=== PATIENT | female | born 1950 | race Two or more races ===

== ENCOUNTER → 2020-10-06 | Outpatient (CLI) | payer OTHER ==
[2020-10-06 10:45] LABS: Urine WBC None Seen /hpf (0 - 5)
[2020-10-06 10:49] LABS: Basophils # (auto) 0 10 ^3/uL (0-0.2); Basophils % (auto) 0.8 % (0.0-2.0); Eosinophils # (auto) 0 10 ^3/uL (0-0.8); Eosinophils % (auto) 0.6 % (0.0-7.0); Hematocrit 37.8 % (36.0-46.0); Hemoglobin 13.2 g/dL (12.2-16.2); Lymphocytes # (auto) 1.6 10 ^3/uL (0.4-5.4); Lymphocytes % (auto) 43.6 % (10.0-50.0); Mean Corpuscular Hemoglobin 32.6 pg (28.0-32.0); Mean Corpuscular Hgb Conc. 34.9 g/dL (32.0-36.0); Mean Corpuscular Volume 93.3 fL (80.0-100.0); Monocytes # (auto) 0.3 10 ^3/uL (0-1.3); Monocytes % (auto) 8.3 % (0.0-12.0); Neutrophils # (auto) 1.7 10 ^3/uL (1.6-8.6); Neutrophils % (auto) 46.7 % (37.0-80.0); Nucleated Red Blood Cells % 0.1 %; Platelet Count (auto) 206 10^3/uL (140-450); Red Blood Cells 4.05 10^6/uL (4.0-5.20); Red Cell Distribution Width 13.2 % (11.8-14.3); White Blood Cell 3.7 10^3/uL (4.4-10.8)
[2020-10-06 10:52] LABS: Urine Bacteria NONE SEEN /hpf (None Seen); Urine Blood Negative /uL (Negative); Urine Specific Gravity 1.008 (1.001-1.035)
[2020-10-06 11:12] LABS: Albumin 4.2 g/dL (3.4-5.0); Potassium 3.8 mmol/L (3.5-5.1)
[2020-10-06 11:18] LABS: Bilirubin, Total 0.6 mg/dL (0.2-1.0); Calcium 8.8 mg/dL (8.5-10.1); Total Protein 7.8 g/dL (6.4-8.2)
== END | disposition home or self-care (01) ==
LOC: LAB 10:27
PROVIDERS: ATTEND Internal Medicine
DX: E11.9 Type 2 diabetes mellitus without complications (principal); I10 Essential (primary) hypertension; E78.5 Hyperlipidemia, unspecified
CPT/HCPCS: 36415; 80053; 80061; 81001; 82043; 83036; 85025

== ENCOUNTER 2020-12-30 09:38 | Day surgery (SDC) | payer OTHER ==
[2020-12-27 10:58] LABS: Basophils # (auto) 0 10 ^3/uL (0-0.2); Basophils % (auto) 0.6 % (0.0-2.0); Eosinophils # (auto) 0 10 ^3/uL (0-0.8); Eosinophils % (auto) 0.5 % (0.0-7.0); Hematocrit 38.9 % (36.0-46.0); Hemoglobin 13.9 g/dL (12.2-16.2); Lymphocytes # (auto) 2.2 10 ^3/uL (0.4-5.4); Lymphocytes % (auto) 38.6 % (10.0-50.0); Mean Corpuscular Hemoglobin 32.9 pg (28.0-32.0); Mean Corpuscular Hgb Conc. 35.7 g/dL (32.0-36.0); Mean Corpuscular Volume 92.3 fL (80.0-100.0); Monocytes # (auto) 0.5 10 ^3/uL (0-1.3); Neutrophils % (auto) 52.3 % (37.0-80.0); Nucleated Red Blood Cells % 0.1 %; Red Blood Cells 4.21 10^6/uL (4.0-5.20); Red Cell Distribution Width 12.9 % (11.8-14.3); White Blood Cell 5.8 10^3/uL (4.4-10.8)
[2020-12-27 12:11] LABS: Potassium 3.8 mmol/L (3.5-5.1)
[2020-12-27 12:32] LABS: Albumin 4.2 g/dL (3.4-5.0); BUN/Creatinine Ratio 35.6; Bilirubin, Total 0.5 mg/dL (0.2-1.0); Total Protein 8.1 g/dL (6.4-8.2)
[~2020-12-30] VITALS: Ht 170.2 cm; Wt 72.6 kg
[~2020-12-30 09:38] MED LIST: AMLO-489 PO; ATOR10TA PO; GLIP5TAB12 PO; LOSA50TA30 PO; METF-372 PO; PANT1INJ3 PO
[2020-12-30 10:55] VITALS: BP 117/75
[2020-12-30] MEDS ORDERED: LIDOCAINE VISCOUS 2% 15ML UD ONE (14:24)
[2020-12-30] MEDS ORDERED: fentaNYL CITRATE 100 MCG/2 ML VL ONE (14:25)
[2020-12-30] MEDS ORDERED: MIDAZOLAM HCL 5 MG/ML-1ML VIAL ONE (14:25)
== END 2020-12-30 11:05 | disposition home or self-care (01) ==
LOC: GI 09:38
PROVIDERS: ATTEND Internal Medicine Gastroenterology
DX: R10.13 Epigastric pain (principal); I10 Essential (primary) hypertension; E11.9 Type 2 diabetes mellitus without complications; E78.5 Hyperlipidemia, unspecified; Z20.822 Contact with and (suspected) exposure to COVID-19; Z98.890 Other specified postprocedural states; Z79.899 Other long term (current) drug therapy
CPT/HCPCS: 36415; 43239; 80053; 82962; 85025; J2250; J3010; J7030; U0003

== ENCOUNTER → 2021-01-24 | Outpatient (CLI) | payer OTHER ==
[2021-01-24 09:50] LABS: Basophils # (auto) 0 10 ^3/uL (0-0.2); Basophils % (auto) 0.9 % (0.0-2.0); Eosinophils # (auto) 0 10 ^3/uL (0-0.8); Eosinophils % (auto) 0.5 % (0.0-7.0); Hematocrit 38.5 % (36.0-46.0); Hemoglobin 13.4 g/dL (12.2-16.2); Lymphocytes # (auto) 2.1 10 ^3/uL (0.4-5.4); Lymphocytes % (auto) 47.1 % (10.0-50.0); Mean Corpuscular Hemoglobin 31.8 pg (28.0-32.0); Mean Corpuscular Hgb Conc. 34.7 g/dL (32.0-36.0); Mean Corpuscular Volume 91.7 fL (80.0-100.0); Monocytes # (auto) 0.4 10 ^3/uL (0-1.3); Monocytes % (auto) 8.4 % (0.0-12.0); Neutrophils # (auto) 1.9 10 ^3/uL (1.6-8.6); Neutrophils % (auto) 43.1 % (37.0-80.0); Nucleated Red Blood Cells % 0.1 %; Red Cell Distribution Width 13.2 % (11.8-14.3); White Blood Cell 4.4 10^3/uL (4.4-10.8)
== END | disposition home or self-care (01) ==
LOC: LAB 09:37
PROVIDERS: ATTEND Internal Medicine
DX: E11.9 Type 2 diabetes mellitus without complications (principal); E78.5 Hyperlipidemia, unspecified
CPT/HCPCS: 36415; 85025

== ENCOUNTER → 2021-04-26 | Outpatient (CLI) | payer OTHER | END | disposition home or self-care (01) | LOC: LAB 09:43 | PROVIDERS: ATTEND Internal Medicine | DX: E11.9 Type 2 diabetes mellitus without complications (principal); I10 Essential (primary) hypertension | CPT/HCPCS: 36415; 83036 ==

== ENCOUNTER → 2021-07-27 | Outpatient (CLI) | payer OTHER | END | disposition home or self-care (01) | LOC: LAB 09:04 | PROVIDERS: ATTEND Internal Medicine | DX: E11.9 Type 2 diabetes mellitus without complications (principal) | CPT/HCPCS: 36415; 83036 ==

== ENCOUNTER → 2021-10-28 | Outpatient (CLI) | payer OTHER ==
[2021-10-28 10:16] LABS: Cholesterol 84 mg/dL (< 200); HDL Cholesterol 32 mg/dL (40-59); LDL Cholesterol 43 mg/dL (< 100); Triglycerides 106 mg/dL (< 150)
== END | disposition home or self-care (01) ==
LOC: LAB 08:31
PROVIDERS: ATTEND Internal Medicine
DX: Z12.11 Encounter for screening for malignant neoplasm of colon (principal); E11.9 Type 2 diabetes mellitus without complications; Z00.00 Encounter for general adult medical examination without abnormal findings
CPT/HCPCS: 36415; 80061; 82043; 83036

== ENCOUNTER → 2021-11-30 | Outpatient (CLI) | payer OTHER ==
[2021-11-30 10:59] LABS: Potassium 3.7 mmol/L (3.5-5.1)
[2021-11-30 11:02] LABS: BUN/Creatinine Ratio 24.5; Calcium 8.6 mg/dL (8.5-10.1)
== END | disposition home or self-care (01) ==
LOC: LAB 08:36
PROVIDERS: ATTEND Internal Medicine
DX: E11.9 Type 2 diabetes mellitus without complications (principal)
CPT/HCPCS: 36415; 80048

== ENCOUNTER → 2022-01-25 | Outpatient (CLI) | payer OTHER ==
[2022-01-25 10:05] LABS: Potassium 3.9 mmol/L (3.5-5.1)
[2022-01-25 10:11] LABS: Albumin 4.2 g/dL (3.4-5.0); BUN/Creatinine Ratio 18.3; Bilirubin, Total 0.7 mg/dL (0.2-1.0); Calcium 9.1 mg/dL (8.5-10.1); Total Protein 8.1 g/dL (6.4-8.2)
== END | disposition home or self-care (01) ==
LOC: LAB 08:38
PROVIDERS: ATTEND Internal Medicine
DX: E78.5 Hyperlipidemia, unspecified (principal); E11.9 Type 2 diabetes mellitus without complications
CPT/HCPCS: 36415; 80053; 82043; 83036

== ENCOUNTER → 2022-04-27 | Outpatient (CLI) | payer OTHER | END | disposition home or self-care (01) | LOC: LAB 07:39 | PROVIDERS: ATTEND Internal Medicine | DX: E11.9 Type 2 diabetes mellitus without complications (principal) | CPT/HCPCS: 36415; 83036 ==

== ENCOUNTER → 2022-09-20 | Outpatient (CLI) | payer OTHER ==
[2022-09-20 09:23] LABS: Basophils # (auto) 0 10 ^3/uL (0-0.2); Basophils % (auto) 0.9 % (0.0-2.0); Eosinophils # (auto) 0.2 10 ^3/uL (0-0.8); Eosinophils % (auto) 4.2 % (0.0-7.0); Hemoglobin 13.2 g/dL (12.2-16.2); Lymphocytes # (auto) 2.1 10 ^3/uL (0.4-5.4); Lymphocytes % (auto) 46.7 % (10.0-50.0); Mean Corpuscular Hemoglobin 32.8 pg (28.0-32.0); Mean Corpuscular Hgb Conc. 34.8 g/dL (32.0-36.0); Mean Corpuscular Volume 94.2 fL (80.0-100.0); Monocytes # (auto) 0.3 10 ^3/uL (0-1.3); Monocytes % (auto) 7.5 % (0.0-12.0); Neutrophils # (auto) 1.8 10 ^3/uL (1.6-8.6); Neutrophils % (auto) 40.7 % (37.0-80.0); Nucleated Red Blood Cells % 0.1 %; Red Blood Cells 4.04 10^6/uL (4.0-5.20); Red Cell Distribution Width 12.9 % (11.8-14.3); White Blood Cell 4.4 10^3/uL (4.4-10.8)
[2022-09-20 10:27] LABS: Cholesterol 109 mg/dL (< 200); HDL Cholesterol 39 mg/dL (40-59); LDL Cholesterol 66 mg/dL (< 100); Triglycerides 135 mg/dL (< 150)
[2022-09-20 10:39] LABS: Micro Albumin 43.3 mg/L (0-30.0)
== END | disposition home or self-care (01) ==
LOC: LAB 08:52
PROVIDERS: ATTEND Internal Medicine
DX: Z12.11 Encounter for screening for malignant neoplasm of colon (principal); E11.9 Type 2 diabetes mellitus without complications; E78.5 Hyperlipidemia, unspecified
CPT/HCPCS: 36415; 80061; 82043; 82270; 82570; 83036; 85025

== ENCOUNTER → 2022-12-19 | Outpatient (CLI) | payer OTHER ==
[~2022-12-19] MED LIST changes: -AMLO-489 PO; +AMLO1TAB22 PO
[2022-12-19 08:52] LABS: Albumin 4.1 g/dL (3.4-5.0); Calcium 8.4 mg/dL (8.5-10.1); Potassium 3.9 mmol/L (3.5-5.1)
[2022-12-19 08:55] LABS: BUN/Creatinine Ratio 24.6 (10.0-20.0); Bilirubin, Total 0.6 mg/dL (0.2-1.0); Total Protein 7.8 g/dL (6.4-8.2)
== END | disposition home or self-care (01) ==
LOC: LAB 07:46
PROVIDERS: ATTEND Internal Medicine
DX: E11.9 Type 2 diabetes mellitus without complications (principal); E78.5 Hyperlipidemia, unspecified
CPT/HCPCS: 36415; 80053; 83036

== ENCOUNTER → 2023-04-18 | Outpatient (CLI) | payer OTHER ==
[2023-04-18 09:40] LABS: Creatinine, Urine 73.89 mg/dL (30.0-125.0)
[2023-04-18 09:42] LABS: Triglycerides 111 mg/dL (< 150)
[2023-04-18 09:43] LABS: Cholesterol 106 mg/dL (< 200); LDL Cholesterol 49 mg/dL (< 100)
[2023-04-18 09:44] LABS: HDL Cholesterol 34 mg/dL (40-59)
== END | disposition home or self-care (01) ==
LOC: LAB 08:41
PROVIDERS: ATTEND Internal Medicine
DX: E11.9 Type 2 diabetes mellitus without complications (principal); E78.5 Hyperlipidemia, unspecified
CPT/HCPCS: 36415; 80061; 82043; 82570; 83036

== ENCOUNTER → 2023-04-25 | Outpatient (CLI) | payer OTHER ==
[2023-04-25 12:29] LABS: Erythrocyte Sedimentation Rate 38 mm/hr (0-20)
[2023-04-25 12:45] LABS: Alanine Aminotransferase 15 U/L (7-40); Albumin 4.6 g/dL (3.2-4.8); Alkaline Phosphatase 81 U/L (46-116); Anion Gap 6 (5-15); Aspartate Aminotransferase < 8 U/L (13-40); BUN/Creatinine Ratio 28.4 (10.0-20.0); Blood Urea Nitrogen 21 mg/dL (9-23); Calcium 9.7 mg/dL (8.5-10.1); Carbon Dioxide 32 mmol/L (20-30); Chloride 101 mmol/L (98-107); Glucose 181 mg/dL (74-106); Potassium 4.4 mmol/L (3.5-5.1); Sodium 139 mmol/L (136-145); Total Protein 7.6 g/dL (5.7-8.2)
== END | disposition home or self-care (01) ==
LOC: LAB 11:37
PROVIDERS: ATTEND Internal Medicine
DX: E11.9 Type 2 diabetes mellitus without complications (principal); E78.5 Hyperlipidemia, unspecified; M19.032 Primary osteoarthritis, left wrist
CPT/HCPCS: 36415; 80053; 84550; 85652

== ENCOUNTER → 2023-08-20 | Outpatient (CLI) | payer OTHER ==
[2023-08-20 10:22] LABS: Alanine Aminotransferase 14 U/L (7-40); Alkaline Phosphatase 74 U/L (46-116); Anion Gap 6 (5-15); BUN/Creatinine Ratio 11.5 (10.0-20.0); Blood Urea Nitrogen 7 mg/dL (9-23); Calcium 9.6 mg/dL (8.5-10.1); Carbon Dioxide 31 mmol/L (20-30); Chloride 106 mmol/L (98-107); Glucose 128 mg/dL (74-106); LDL Cholesterol 47 mg/dL (< 100); Potassium 3.8 mmol/L (3.5-5.1); Sodium 143 mmol/L (136-145); Triglycerides 169 mg/dL (< 150)
[2023-08-20 10:23] LABS: Albumin 4.6 g/dL (3.2-4.8); Aspartate Aminotransferase 15 U/L (13-40); Cholesterol 102 mg/dL (< 200); HDL Cholesterol 31 mg/dL (40-59)
[2023-08-20 10:24] LABS: Bilirubin, Total 0.9 mg/dL (0.2-1.0); Total Protein 7.1 g/dL (5.7-8.2)
[2023-08-20 12:56] LABS: Creatinine, Urine 61.18 mg/dL (30.0-125.0)
== END | disposition home or self-care (01) ==
LOC: LAB 08:37
PROVIDERS: ATTEND Internal Medicine
DX: E11.9 Type 2 diabetes mellitus without complications (principal)
CPT/HCPCS: 36415; 80053; 80061; 82043; 82570; 83036

== ENCOUNTER 2024-02-13 07:45 | Day surgery (SDC) | payer OTHER ==
[2024-02-08 12:48] LABS: Basophils # (auto) 0 10 ^3/uL (0-0.2); Basophils % (auto) 0.8 % (0.0-2.0); Eosinophils # (auto) 0 10 ^3/uL (0-0.8); Eosinophils % (auto) 0.8 % (0.0-7.0); Hematocrit 38.4 % (36.0-46.0); Hemoglobin 13.7 g/dL (12.2-16.2); Lymphocytes # (auto) 2.1 10 ^3/uL (0.4-5.4); Lymphocytes % (auto) 38.6 % (10.0-50.0); Mean Corpuscular Hemoglobin 33.7 pg (28.0-32.0); Mean Corpuscular Hgb Conc. 35.6 g/dL (32.0-36.0); Mean Corpuscular Volume 94.7 fL (80.0-100.0); Monocytes # (auto) 0.5 10 ^3/uL (0-1.3); Monocytes % (auto) 8.4 % (0.0-12.0); Neutrophils # (auto) 2.8 10 ^3/uL (1.6-8.6); Neutrophils % (auto) 51.4 % (37.0-80.0); Red Blood Cells 4.06 10^6/uL (4.0-5.20); Red Cell Distribution Width 12.7 % (11.8-14.3); White Blood Cell 5.4 10^3/uL (4.4-10.8)
[2024-02-08 13:14] LABS: INR 0.99 (0.9-1.15); Partial Thromboplastin Time 27.6 SEC (24.5-34.5); Prothrombin Time 10.5 sec (9.3-11.8)
[2024-02-08 13:24] LABS: Alanine Aminotransferase 20 U/L (7-40); Alkaline Phosphatase 99 U/L (46-116); Anion Gap 8 (5-15); Aspartate Aminotransferase < 8 U/L (13-40); BUN/Creatinine Ratio 28.1 (10.0-20.0); Blood Urea Nitrogen 16 mg/dL (9-23); Carbon Dioxide 29 mmol/L (20-30); Chloride 106 mmol/L (98-107); Glucose 120 mg/dL (74-106); Potassium 3.8 mmol/L (3.5-5.1); Sodium 143 mmol/L (136-145)
[2024-02-08 13:25] LABS: Albumin 4.7 g/dL (3.2-4.8); Bilirubin, Total 0.6 mg/dL (0.2-1.0); Total Protein 7.9 g/dL (5.7-8.2)
[~2024-02-13] VITALS: Ht 172.7 cm; Wt 68.9 kg
[~2024-02-13 07:45] MED LIST changes: -GLIP5TAB12 PO; -METF-372 PO; +METF-489 PO; -PANT1INJ3 PO
[2024-02-13] MEDS ORDERED: SODIUM CHLORIDE LOCK 10 ML ONE (08:01)
[2024-02-13] MEDS ORDERED: diphenhdrAMINE HCL 50 MG/1 ML VL ONE (08:02)
[2024-02-13 09:25] VITALS: PULSE 55; RESP 18; O2SAT 94
[2024-02-13] MEDS: fentaNYL CITRATE 100 MCG/2 ML VL ONE (09:29)
[2024-02-13] MEDS: MIDAZOLAM HCL 5 MG/ML-1ML VIAL ONE (09:29)
[2024-02-13 09:53] VITALS: TEMP 97.8; O2SAT 99
[2024-02-13 10:23] VITALS: BP 104/58; PULSE 54; RESP 12; O2SAT 93
== END 2024-02-13 10:35 | disposition home or self-care (01) ==
LOC: GI 07:45
PROVIDERS: ATTEND Internal Medicine Gastroenterology
DX: Z12.11 Encounter for screening for malignant neoplasm of colon (principal); K63.5 Polyp of colon; K57.30 Diverticulosis of large intestine without perforation or abscess without bleeding; K64.8 Other hemorrhoids; K63.89 Other specified diseases of intestine; I10 Essential (primary) hypertension; E78.5 Hyperlipidemia, unspecified; E11.9 Type 2 diabetes mellitus without complications; Z79.4 Long term (current) use of insulin; Z98.890 Other specified postprocedural states; Z79.899 Other long term (current) drug therapy; Z79.84 Long term (current) use of oral hypoglycemic drugs
CPT/HCPCS: 36415; 45380; 80053; 82962; 85025; 85610; 85730; 88305; J2250; J3010; J7030; 99152

== ENCOUNTER → 2024-02-20 | Outpatient (CLI) | payer OTHER ==
[2024-02-20 07:50] LABS: Triglycerides 121 mg/dL (< 150)
[2024-02-20 07:51] LABS: LDL Cholesterol 41 mg/dL (< 100)
[2024-02-20 07:52] LABS: Cholesterol 100 mg/dL (< 200); HDL Cholesterol 34 mg/dL (40-59)
== END | disposition home or self-care (01) ==
LOC: LAB 06:59
PROVIDERS: ATTEND Internal Medicine
DX: Z12.11 Encounter for screening for malignant neoplasm of colon (principal); E11.9 Type 2 diabetes mellitus without complications
CPT/HCPCS: 36415; 80061; 83036

== ENCOUNTER → 2024-05-21 | Outpatient (CLI) | payer OTHER ==
[2024-05-21 09:38] LABS: LDL Cholesterol 52 mg/dL (< 100); Triglycerides 151 mg/dL (< 150)
[2024-05-21 09:40] LABS: Cholesterol 110 mg/dL (< 200); HDL Cholesterol 34 mg/dL (40-59)
== END | disposition home or self-care (01) ==
LOC: LAB 08:47
PROVIDERS: ATTEND Internal Medicine
DX: E11.9 Type 2 diabetes mellitus without complications (principal); E78.5 Hyperlipidemia, unspecified
CPT/HCPCS: 36415; 80061; 83036

== ENCOUNTER → 2024-06-11 | Outpatient (CLI) | payer OTHER ==
[~2024-06-11] VITALS: Ht 172.7 cm; Wt 71.2 kg
[2024-06-11] MEDS: REGADENOSON 0.4 MG/5 ML SYRG IV ONE ×2 (10:25→10:27)
--- NOTE | 2024-06-11 13:46 | DVHSR ---
APPROVED REPORT Exam: Nuclear Stress Test BMI: 0 Stress Test Details HR Max Heart Rate (APMHR): 149.415291 bpm Target HR (85% APMHR): 126.533521 bpm BP ECG Stress ECG Conclusion Resting ECG shows normal sinus rhythm. At peak stress level no dynamic EKG changes was noted to sugg est ischemia. Resting images shows near homogeneous uptake of radioactive tracer throughout the myocardium without evidence of myocardial infarction. Stress images shows near homogeneous uptake of radioactive tracer throughout the myocardium without e vidence of myocardial ischemia. Well-preserved left ventricular systolic function at 65%. Impression: Negative stress test for ischemia, low risk study NM EXAM: Myocardial Perfusion REST/STRESS Imaging Protocol: Rest Tc-99m/Stress Tc-99m 1 day Resting Data Rest SPECT myocardial perfusion imaging was performed in supine position 60 minutes following the int ravenous injection of 13.1 mCi of Tc-99m Sestamibi. Time of rest injection: 0915 Time of rest imagin Administration Route: IV Administration Site: Right AC Pharmacologic Stress Pharmacologic stress test was performed by injecting Regadenoson 0.4 mg IV push followed by the intra venous injection of 32 mCi of Tc-99m Sestamibi. Time of stress injection: 1025 Time of stress imagin Administration Route: IV Administration Site: Right AC Gated Stress SPECT was performed 60 minutes after stress injection. The images were gated to evaluate regional wall motion and calculate left ventricular ejection fracti on. Stress only was performed in the Supine position. Nuclear Conclusion ECG Findings: negative for ischemia Clinical Findings: negative for ischemia Nuclear Findings: negative for ischemia Exercise Capacity: normal Left Ventricular Function: normal Risk Study: low Resting ECG shows normal sinus rhythm. At peak stress level no dynamic EKG changes was noted to sugg est ischemia. Resting images shows near homogeneous uptake of radioactive tracer throughout the myocardium without evidence of myocardial infarction. Stress images shows near homogeneous uptake of radioactive tracer throughout the myocardium without e vidence of myocardial ischemia. Well-preserved left ventricular systolic function at 65%. Impression: Negative stress test for ischemia, low risk study
== END | disposition home or self-care (01) ==
LOC: XYW 09:04
PROVIDERS: ATTEND Student in an Organized Health Care Education/Training Program
DX: Z01.810 Encounter for preprocedural cardiovascular examination (principal); M17.0 Bilateral primary osteoarthritis of knee
CPT/HCPCS: 78452; 93017; A9500; J2785

== ENCOUNTER → 2024-08-20 | Outpatient (CLI) | payer OTHER ==
[2024-08-20 12:09] LABS: Alanine Aminotransferase 17 U/L (7-40); Anion Gap 8 (5-15); Blood Urea Nitrogen 13 mg/dL (9-23); Calcium 9.9 mg/dL (8.7-10.4); Carbon Dioxide 31 mmol/L (20-31); Chloride 103 mmol/L (98-107); Potassium 3.7 mmol/L (3.5-5.1); Sodium 142 mmol/L (136-145)
[2024-08-20 12:11] LABS: Albumin 4.7 g/dL (3.2-4.8); Bilirubin, Total 0.8 mg/dL (0.2-1.0); Total Protein 7.5 g/dL (5.7-8.2)
[2024-08-20 12:21] LABS: Aspartate Aminotransferase 11 U/L (13-40); Glucose 143 mg/dL (74-106)
[2024-08-20 13:09] LABS: Alkaline Phosphatase 72 U/L (46-116)
[2024-08-20 13:20] LABS: Creatinine, Urine 80.72 mg/dL (30.0-125.0)
[2024-08-20 13:40] LABS: LDL Cholesterol 58 mg/dL (< 100); Triglycerides 103 mg/dL (< 150)
[2024-08-20 13:41] LABS: Cholesterol 110 mg/dL (< 200)
[2024-08-20 13:47] LABS: HDL Cholesterol 33 mg/dL (40-59)
== END | disposition home or self-care (01) ==
LOC: LAB 09:28
PROVIDERS: ATTEND Internal Medicine
DX: E11.9 Type 2 diabetes mellitus without complications (principal); E78.5 Hyperlipidemia, unspecified
CPT/HCPCS: 36415; 80053; 80061; 82043; 82570; 83036

== ENCOUNTER 2024-09-03 06:11 | Inpatient (IN) | payer OTHER ==
[2024-09-01 11:14] LABS: Basophils # (auto) 0 10 ^3/uL (0-0.2); Basophils % (auto) 0.6 % (0.0-2.0); Eosinophils # (auto) 0 10 ^3/uL (0-0.8); Eosinophils % (auto) 0.5 % (0.0-7.0); Hematocrit 37.7 % (36.0-46.0); Lymphocytes # (auto) 1.7 10 ^3/uL (0.4-5.4); Lymphocytes % (auto) 38.8 % (10.0-50.0); Mean Corpuscular Hgb Conc. 34.5 g/dL (32.0-36.0); Mean Corpuscular Volume 95.5 fL (80.0-100.0); Monocytes # (auto) 0.3 10 ^3/uL (0-1.3); Monocytes % (auto) 7.2 % (0.0-12.0); Neutrophils # (auto) 2.2 10 ^3/uL (1.6-8.6); Neutrophils % (auto) 52.9 % (37.0-80.0); Platelet Count (auto) 207 10^3/uL (140-450); Red Blood Cells 3.95 10^6/uL (4.0-5.20); Red Cell Distribution Width 12.7 % (11.8-14.3); White Blood Cell 4.3 10^3/uL (4.4-10.8)
[2024-09-01 11:28] LABS: INR 1.02 (0.9-1.15); Partial Thromboplastin Time 27.3 SEC (24.5-34.5); Prothrombin Time 10.8 sec (9.3-11.8)
[2024-09-01 11:37] LABS: Urine Bacteria None Seen /hpf (None Seen); Urine Blood Negative /uL (Negative); Urine Clarity Clear (Clear); Urine Color Light-Yellow (Yellow); Urine Mucus FEW (None Seen); Urine Protein, UAD Negative (Negative); Urine Specific Gravity 1.017 (1.001-1.035); Urine Squamous Epithelial Cell FEW /hpf (<5); Urine Urobilinogen Normal (Negative); Urine WBC 3 /HPF (0-5)
[2024-09-01 11:53] LABS: Alanine Aminotransferase 23 U/L (7-40); Albumin 4.7 g/dL (3.2-4.8); Alkaline Phosphatase 72 U/L (46-116); Anion Gap 8 (5-15); BUN/Creatinine Ratio 18.2 (10.0-20.0); Blood Urea Nitrogen 12 mg/dL (9-23); Calcium 9.5 mg/dL (8.7-10.4); Carbon Dioxide 31 mmol/L (20-31); Chloride 103 mmol/L (98-107); Potassium 3.9 mmol/L (3.5-5.1); Sodium 142 mmol/L (136-145)
[2024-09-01 11:54] LABS: Bilirubin, Total 0.7 mg/dL (0.2-1.0); Total Protein 7.3 g/dL (5.7-8.2)
[2024-09-01 11:58] LABS: Aspartate Aminotransferase 11 U/L (13-40); Glucose 176 mg/dL (74-106)
[~2024-09-03] VITALS: Ht 170.2 cm; Wt 78.9 kg
[2024-09-03] VITALS (7 sets, daily range): BP systolic 108–119; BP diastolic 59–76; PULSE 59–67; RESP 12–18; TEMP 97.4–98; O2SAT 94–100
[2024-09-03] MEDS: TRANEXAMIC ACID 20 ML ONE (06:52)
[2024-09-03] MEDS: BUPIVACAINE 0.25% INJ 50ML VIAL ONE (06:52)
[2024-09-03] MEDS: VANCOMYCIN HCL 1000 MG VL ONE (06:53)
[2024-09-03] MEDS ORDERED: KETAMINE 50mg/ML 1ml syringe ONE (07:10)
[2024-09-03] MEDS ORDERED: LIDOCAINE 1% INJ PF 5ML AMP ONE (07:10)
[2024-09-03] MEDS ORDERED: SODIUM CHLORIDE LOCK 10 ML ONE (07:10)
[2024-09-03] MEDS ORDERED: fentaNYL CITRATE 100 MCG/2 ML VL ONE (07:10)
[2024-09-03] MEDS ORDERED: ONDANSETRON HCL 4 MG/2 ML VIAL ONE (07:10)
[2024-09-03] MEDS ORDERED: PROPOFOL 10 MG/ML 20 ML IV ONE (07:10)
[2024-09-03] MEDS ORDERED: DexAMETHasone SOD PHOS 10MG/1ML VIAL INJ ONE (07:10)
[2024-09-03] MEDS ORDERED: MIDAZOLAM HCL 2MG/2ML 2ml VIAL (1mg/ml) ONE (07:10)
[2024-09-03] MEDS ORDERED: MORPHINE SULF PF 5 MG/10 ML VIAL ONE (07:10)
[2024-09-03] MEDS ORDERED: EPINEPHrine HCL 1 MG/1 ML AMP ONE (07:16)
[2024-09-03] MEDS ORDERED: BUPIVACAINE/DEXTROSE MPF 0.75% 2 ML AMP IT ONE (07:16)
[2024-09-03] MEDS: ceFAZolin 2 GM/D5W100ml 100 ML IV ONE (07:40)
--- NOTE | 2024-09-03 07:48 | DVHHP2 ---
History Allergies: Coded Allergies: NO KNOWN ALLERGIES (Unverified , 06/11/24) Chief Complaint: Left knee pain, non responsive to conservative care Present Illness(Onset/Duration several year progression of left knee pain, non responsive to conservative care including activity mod, PT, NSAID, injecitno steroid, pain severly limits ambulation Past Surgical History Left knee tibial tuberostiy osteotomy Medications DM, non insulin HTN Physical Exam Skin instact Chest and Lungs CTA B Heart RRR neg MRG Abdomen NBS Nd NT Extremities Left knee, anterior midline incision, ROM 20-120, varus 5 deg, NVI Vital Signs Vital Signs Date Time Temp Pulse Resp B/P (MAP) Pulse Ox O2 Delivery O2 Flow Rate FiO2 09/03/24 06:45 97.5 53 18 156/86 (109) 96 97.5 Impressions/Description Left knee endstage OA Plan pre op cardiology clearance obtained and reviewed as low risk surgery Hardware removal and total knee replacemente TALIA SIMPSON MD Sep 03, 2024 07:48
[2024-09-03] MEDS ORDERED: NALOXONE HCL 0.4 MG/ML VIAL IV PRN (09:30)
[2024-09-03] MEDS ORDERED: MORPHINE SULFATE INJ 2 MG/ml SYRG IV PRN (09:30)
[2024-09-03] MEDS: KETOROLAC TROMETH 30 MG/ML 1ML VIAL IV ONE (09:30)
[2024-09-03] MEDS: ACCU-CHEK COMFORT CURVE STRIP VI ONE (09:30)
[2024-09-03] MEDS ORDERED: diphenhdrAMINE HCL 50 MG/1 ML VL IV PRN (09:30)
[2024-09-03] MEDS ORDERED: MORPHINE SULFATE 4 MG/ML SYR/VIAL IV PRN (09:30)
[2024-09-03] MEDS: METOCLOPRAMIDE HCL 5MG/ml INJ 2ml VIAL IV ONE (09:30)
[2024-09-03] MEDS ORDERED: HYDROmorphone HCL 2 MG/ML VL/or syr IV PRN (09:30)
--- NOTE | 2024-09-03 09:47 | DVHOP2 ---
Operative Report - 2 Report Details Date: 09/03/24 Preop Diagnosis: Left knee OA endstage Postop Diagnosis: same Surgeon: Talia Hahn MD Lead Web Application Developer: BOWEN Hamilton Anesthesiologist: Dr Maulik Young Anesthesia: Regional Drains: none Implant: Linton TKA cemented. 4 femur, 4 poly x 9, 4 tibia, 32 patella Consent: The patient was informed of the risks and benefits of the procedure. These include but are not limited to complications of anesthesia, postoperative infection, incomplete relief of symptoms, recurrence of symptoms, damage to blood vessels, nerves and tendons, deep venous thrombosis, pulmonary embolism and possible need for repeat surgery in the future. Complications: none Estimated Blood Loss: 100 cc Fluids: 1 L crystalloid Findings: left knee , OA endstage Indications for Surgery: Painful arthritis of left knee, non-responsive to conservative care, affecting ADLs Name of Procedure Performed Left total knee arthroplasty Procedure Details Procedure Details: Patient brought in the operating room given Ancef 1 g TXA 2 g IV piggyback preoperatively a received spinal anesthetic without complication sterile prep a nd drape left lower extremity after placement of nonsterile tourniquet left thigh time-out performed comprehension left side correct side total knee arthroplasty correct procedure after review of operative consent history and physical my initials on left knee exsanguination with Esmarch tourniquet elevated to 250 mm Hg total tourniquet time 45 minutes longitudinal anterior midline incision made and the in the same line as the prior scar from anterior surgery sharp dissection through skin down to deep fascia medial parapatellar osteotomy or medial parapatellar approach used and patella everted knee flexed gently due to history of prior osteotomy of two up tibial tuberosity Reamer used to gain access to femoral canal intramedullary guide beata placed with distal femoral guide 2 mm cut from distal femur then because of 20 degree flexion contraction additional 2 mm was cut from distal femur then Sizer was used referenced off of the posterior femoral condyles and seen to be size four size four four in one cutting block was then tapped into place and distal femoral cuts made then notch guide applied and notch cut made then tibia prepared plac ing root retractors medial lateral and posterior reaming to gain access to intramedullary canal placing intramedullary guide beata and pinning tibial resection using 2-0 mm off of medial side and lining up to the 2nd metatarsal ray proximal tibial cut made soft tissue balancing then performed by checking flexion and extension are medial and lateral tightness in both flexion and exten mando then a trial of a trialing was performed with a size four femur size four patella with a 9 mm poly and there seemed to be a 10-15 degree flexion contracture therefore the distal femur was recut removing two more mm distally and re-doing the chamfer cuts trialing then showed excellent range of motion of left knee 0-120 with no tightness in terminal flexion tibial tray or tibial surface was then prepared putting tibial guide in place and and hitting with with keel punch patellar surface prepared resecting 9 mm for a 32 poly one one less than the standard thickness due to overall thin patella patellar buttons reamed medializing the patellar buttons for better patellar tracking leg extended tourniquet let down excellent hemostasis noted all loose bodies and bone was removed knee repacked and as re-exsanguinated with Esmarch tourniquet elevated to 250 mm Hg total tourniquet time at this point was of 10 minutes and true components cemented into place Linton posterior stabilized knee size four femur size four tibia with 9 mm poly 32 x 10 patella excellent range of motion stability noted with true components in place and excellent patellar tracking irrigation performed excellent hemostasis noted after tourniquet let down vancomycin placed deep to deep fascia deep fascia repaired with simple interrupted 0 Vicryl sutures subcutaneous 2-0 Vicryl sutures skin re fluffs ABD Abelardo wrap a loose Abelardo wrap knee immobilizer no drains specimens or complications Specimen: none Condition Stable Disposition Still a Patient TALIA HAHN MD Sep 03, 2024 09:47
[2024-09-03] MEDS: HYDROmorphone HCL 2 MG/ML VL/or syr ONE (09:49)
[2024-09-03] MEDS: HYDROmorphone HCL 2 MG/ML VL/or syr IV PRN (09:50)
[2024-09-03] MEDS ORDERED: ONDANSETRON HCL 4 MG/2 ML VIAL IV PRN (10:00)
[2024-09-03] MEDS: ENOXAPARIN SOD 30 MG/0.3 ML SYRINGE SC SCH (10:00)
[2024-09-03] MEDS ORDERED: NITROGLYCERIN 0.4 MG SL TAB SL PRN (10:00)
[2024-09-03] MEDS: DOCUSATE SOD 100 MG CAP PO SCH (10:00)
[2024-09-03] MEDS: LACTATED RINGER'S 1,000 ML IV SCH (10:00)
[2024-09-03] MEDS ORDERED: BISACODYL 5 MG EC TAB PO PRN (10:00)
[2024-09-03] MEDS ORDERED: ceFAZolin 1GM/50ML 50 ML IV SCH (10:00)
--- NOTE | 2024-09-03 10:17 | DVH ---
CLINICAL INDICATION: S/P SURGERY TECHNIQUE: 3 radiographic views of the left knee were obtained. Comparison: None FINDINGS/IMPRESSION: Postsurgical changes from left knee arthroplasty.
[2024-09-03] MEDS: ceFAZolin 1GM/50ML 50 ML IV SCH (13:57)
[2024-09-04] VITALS (8 sets, daily range): BP systolic 106–126; BP diastolic 54–92; PULSE 57–99; RESP 16–20; TEMP 98–98.9; O2SAT 93–99
[2024-09-04] MEDS: ACETAMINOPHEN 325 MG TAB PO PRN (04:55)
--- NOTE | 2024-09-04 11:40 | DVHINCON2 ---
Date Seen: Sep 04, [address] Weber Family History: Patient reports no known family medical history. Allergies: Coded Allergies: NO KNOWN ALLERGIES (Unverified , 06/11/24) Home Meds Reported Medications Metformin Hydrochloride (METFORMIN HCL ER) 500 Mg Tab, 500 MG PO, TAB 02/08/24 Atorvastatin Calcium (Lipitor) 10 Mg Tab, 10 MG PO DAILY, TAB 12/27/20 Losartan Potassium & Hydrochlo (Losartan Potassium/Hydroc) 1 Tab Tab, 1 TAB PO DAILY, TAB 12/27/20 Amlodipine Besylate (Amlodipine Besylate) 5 Mg Tab, 5 MG PO DAILY, TAB 12/27/20 Current Medications Current Medications Medications (Trade) Dose Ordered Sig/Aba Route PRN Reason Start Time Stop Time Status Last Admin Cefazolin Sodium 50 ml @ 50 mls/hr Q6H IV 09/03/24 14:00 09/04/24 02:59 DC 09/04/24 04:56 Vital Signs Vital Signs Date Time Temp Pulse Resp B/P (MAP) Pulse Ox O2 Delivery O2 Flow Rate FiO2 09/04/24 09:02 98.4 63 20 113/54 (73) 98 98.4 09/03/24 20:00 Room Air* 0 21 Labs/Diagnostic Data Labs Test 09/03/24 09:41 09/01/24 12:00 09/01/24 11:50 09/01/24 10:50 Range/Units POC Glucose 151 H 70-106 mg/dl Urine Color Light-yellow Yellow Urine Clarity Clear Clear Urine pH 7.0 5.0-9.0 Urine Specific [place] 1.017 1.001-1.035 Urine Protein Negative Negative Urine Ketones Negative Negative Urine Blood Negative Negative /uL Urine Nitrite Negative Negative Urine Bilirubin Negative Negative Urine Urobilinogen Normal Negative mg/dL Urine Leukocyte Esterase 1+ Negative /uL Urine RBC 1 0 - 4 /hpf Urine Microscopic WBC 3 0-5 /HPF Urine Squamous Epithelial Cells Few <5 /hpf Urine Bacteria None seen None Seen /hpf Urine Mucus Few None Seen Urine Glucose Normal Normal mg/dL Sodium Level 142 136-145 mmol/L Potassium Level 3.9 3.5-5.1 mmol/L Chloride Level 103 98-107 mmol/L Carbon Dioxide Level 31 20-31 mmol/L Anion Gap 8 5-15 Blood Urea Nitrogen 12 9-23 mg/dL Creatinine 0.66 0.550-1.02 mg/dL Glomerular Filtration Rate Calc 93 >90 mL/min BUN/Creatinine Ratio 18.2 10.0-20.0 Serum Glucose 176 H 74-106 mg/dL Calcium Level 9.5 8.7-10.4 mg/dL Total Bilirubin 0.7 0.2-1.0 mg/dL Aspartate Amino Transferase (AST) 11 L 13-40 U/L Alanine Aminotransferase (ALT) 23 7-40 U/L Alkaline Phosphatase 72 46-116 U/L Total Protein 7.3 5.7-8.2 g/dL Albumin 4.7 3.2-4.8 g/dL White Blood Count 4.3 L 4.4-10.8 10^3/uL Red Blood Count 3.95 L 4.0-5.20 10^6/uL Hemoglobin 13.0 12.2-16.2 g/dL Hematocrit 37.7 36.0-46.0 % Mean Corpuscular Volume 95.5 80.0-100.0 fL Mean Corpuscular Hemoglobin 33.0 H 28.0-32.0 pg Mean Corpuscular Hemoglobin Concent 34.5 32.0-36.0 g/dL Red Cell Distribution Width 12.7 11.8-14.3 % Platelet Count 207 140-450 10^3/uL Mean Platelet Volume 8.4 6.9-10.8 fL Neutrophils (%) (Auto) 52.9 37.0-80.0 % Lymphocytes (%) (Auto) 38.8 10.0-50.0 % Monocytes (%) (Auto) 7.2 0.0-12.0 % Eosinophils (%) (Auto) 0.5 0.0-7.0 % Basophils (%) (Auto) 0.6 0.0-2.0 % Neutrophils # (Auto) 2.2 1.6-8.6 10 ^3/uL Lymphocytes # (Auto) 1.7 0.4-5.4 10 ^3/uL Monocytes # (Auto) 0.3 0-1.3 10 ^3/uL Eosinophils # (Auto) 0 0-0.8 10 ^3/uL Basophils # (Auto) 0 0-0.2 10 ^3/uL Nucleated Red Blood Cells 0.0 % Prothrombin Time 10.8 9.3-11.8 sec Prothrombin Time INR 1.02 0.9-1.15 Activated Partial Thromboplast Time 27.3 24.5-34.5 SEC Assessment see dictated note Plan discussed with: Patient, Spouse Date of Service: Sep 04, 2024 Billing Provider: ROBEL AKINS MD Common Visit Codes: [id number] INP/OBS CARE (HIGH) Secondary Visit Codes: [id number] CARE PLAN 30 MINUTES ROBEL AKINS MD Sep 04, 2024 11:40
[2024-09-04] MEDS ORDERED: DEXTROSE (50%) 50ML SYRG IV PRN (11:45)
[2024-09-04] MEDS: MORPHINE SULFATE INJ 2 MG/ml SYRG IV PRN (12:20)
--- NOTE | 2024-09-04 12:53 | DVHPN2 ---
Date of Progress Note Date of Progress Note Date of Progress Note: 09/04/24 Date of Admission Date of Admission Date of Admission: Date of Admission: Sep 03, 2024 at 09:47 Overnight Events Overnight events Overnight Events jocelyn pain on PO meds. jocelyn PO diet, able to void without howard Family History Family History Family History: Patient reports no known family medical history. Allergies: Coded Allergies: NO KNOWN ALLERGIES (Unverified , 06/11/24) Home Meds Reported Medications Metformin Hydrochloride (METFORMIN HCL ER) 500 Mg Tab, 500 MG PO, TAB 02/08/24 Atorvastatin Calcium (Lipitor) 10 Mg Tab, 10 MG PO DAILY, TAB 12/27/20 Losartan Potassium & Hydrochlo (Losartan Potassium/Hydroc) 1 Tab Tab, 1 TAB PO DAILY, TAB 12/27/20 Amlodipine Besylate (Amlodipine Besylate) 5 Mg Tab, 5 MG PO DAILY, TAB 12/27/20 Current Medications Current Medications Medications (Trade) Dose Ordered Sig/Aba Route PRN Reason Start Time Stop Time Status Last Admin Cefazolin Sodium 50 ml @ 50 mls/hr Q6H IV 09/03/24 14:00 09/04/24 02:59 DC 09/04/24 04:56 Diagnostic Test (Pha) (Accu-Chek Comfort Curve T) 1 strip ACHS 09/04/24 17:00 Insulin Human Regular (InsuLIN R) ACHS SC 09/04/24 17:00 Dextrose 50 ml UD PRN IV Blood Sugar LESS THAN 60 09/04/24 11:45 Morphine Sulfate 2 mg Q4HPRN PRN IV SEVERE PAIN (7-10 PAIN SCALE) 09/04/24 11:45 09/04/24 12:20 Acetaminophen/ Hydrocodone Bitart ([place] 5/325MG Tab) 1 tab Q6HPRN PRN PO MODERATE PAIN (4-6 PAIN SCALE) 09/04/24 11:45 Acetaminophen (Tylenol Tablet) 650 mg Q6HP PRN PO MILD PAIN (1-3 PAIN SCALE) 09/04/24 11:45 Physical Examination General Examination: Last Vital sign Vital Signs Date Time Temp Pulse Resp B/P (MAP) Pulse Ox O2 Delivery O2 Flow Rate FiO2 09/04/24 12:20 63 18 113/54 09/04/24 09:02 98.4 98 98.4 09/03/24 20:00 Room Air* 0 21 General: General: No apparent distress, appears comfortable. Cooperative. Extremities: Left knee no drainage, NVI, in immobilizer Skin: no drainage Neurological Examination: Neurological Examination: Mental Status: Cranial Nerves: Motor Examination: Reflexes: Sensory: Coordination: Gait: NVI Labs: Labs: Laboratory Tests Test 09/01/24 10:50 09/01/24 11:50 09/01/24 12:00 09/03/24 07:06 Range/Units White Blood Count 4.3 L 4.4-10.8 10^3/uL Red Blood Count 3.95 L 4.0-5.20 10^6/uL Hemoglobin 13.0 12.2-16.2 g/dL Hematocrit 37.7 36.0-46.0 % Mean Corpuscular Volume 95.5 80.0-100.0 fL Mean Corpuscular Hemoglobin 33.0 H 28.0-32.0 pg Mean Corpuscular Hemoglobin Concent 34.5 32.0-36.0 g/dL Red Cell Distribution Width 12.7 11.8-14.3 % Platelet Count 207 140-450 10^3/uL Mean Platelet Volume 8.4 6.9-10.8 fL Neutrophils (%) (Auto) 52.9 37.0-80.0 % Lymphocytes (%) (Auto) 38.8 10.0-50.0 % Monocytes (%) (Auto) 7.2 0.0-12.0 % Eosinophils (%) (Auto) 0.5 0.0-7.0 % Basophils (%) (Auto) 0.6 0.0-2.0 % Neutrophils # (Auto) 2.2 1.6-8.6 10 ^3/uL Lymphocytes # (Auto) 1.7 0.4-5.4 10 ^3/uL Monocytes # (Auto) 0.3 0-1.3 10 ^3/uL Eosinophils # (Auto) 0 0-0.8 10 ^3/uL Basophils # (Auto) 0 0-0.2 10 ^3/uL Nucleated Red Blood Cells 0.0 % Prothrombin Time 10.8 9.3-11.8 sec Prothrombin Time INR 1.02 0.9-1.15 Activated Partial Thromboplast Time 27.3 24.5-34.5 SEC Sodium Level 142 136-145 mmol/L Potassium Level 3.9 3.5-5.1 mmol/L Chloride Level 103 98-107 mmol/L Carbon Dioxide Level 31 20-31 mmol/L Anion Gap 8 5-15 Blood Urea Nitrogen 12 9-23 mg/dL Creatinine 0.66 0.550-1.02 mg/dL Glomerular Filtration Rate Calc 93 >90 mL/min BUN/Creatinine Ratio 18.2 10.0-20.0 Serum Glucose 176 H 74-106 mg/dL Calcium Level 9.5 8.7-10.4 mg/dL Total Bilirubin 0.7 0.2-1.0 mg/dL Aspartate Amino Transferase (AST) 11 L 13-40 U/L Alanine Aminotransferase (ALT) 23 7-40 U/L Alkaline Phosphatase 72 46-116 U/L Total Protein 7.3 5.7-8.2 g/dL Albumin 4.7 3.2-4.8 g/dL Urine Color Light-yellow Yellow Urine Clarity Clear Clear Urine pH 7.0 5.0-9.0 Urine Specific [place] 1.017 1.001-1.035 Urine Protein Negative Negative Urine Ketones Negative Negative Urine Blood Negative Negative /uL Urine Nitrite Negative Negative Urine Bilirubin Negative Negative Urine Urobilinogen Normal Negative mg/dL Urine Leukocyte Esterase 1+ Negative /uL Urine RBC 1 0 - 4 /hpf Urine Microscopic WBC 3 0-5 /HPF Urine Squamous Epithelial Cells Few <5 /hpf Urine Bacteria None seen None Seen /hpf Urine Mucus Few None Seen Urine Glucose Normal Normal mg/dL POC Glucose 143 H 70-106 mg/dl Test 09/03/24 09:41 Range/Units POC Glucose 151 H 70-106 mg/dl Imaging Imagin09/03/26 Left knee 2V, TKA, well aligned, no evidence of fracture or loosening Assessment/Plan Assessment/Plan Assessment and Plan:Vic Stevens is a 74 year old female who presents POD 1 s/p LEFT TKA 1) PT 2) follow up ortho clinic 2 wks Plan discussed with: Patient TALIA SIMPSON MD Sep 04, 2024 12:53
[2024-09-04] MEDS: ACCU-CHEK COMFORT CURVE STRIP VI SCH (17:00)
[2024-09-04] MEDS: InsuLIN REG 1unit/0.01ml Soln (100units/ml) SC SCH (18:45)
--- NOTE | 2024-09-04 23:22 | DVHINCON2 ---
INTERNAL MEDICINE CONSULT HISTORY OF PRESENT ILLNESS: The patient is a 74-year-old lady who was admitted after she underwent surgery on the left knee for osteoarthritis of the knee. The patient complains of pain in the knee. She has ambulated with physical therapy. No chest pain, no shortness of breath. No nausea or vomiting. REVIEW OF SYSTEMS: Review of rest of systems are otherwise currently negative. PAST MEDICAL HISTORY: Significant for diabetes, hypertension and hyperlipidemia. MEDICATIONS: She takes amlodipine, Lipitor, losartan, and metformin. ALLERGIES: No known drug allergies. SOCIAL HISTORY: Denies smoking or alcohol. Lives at home with her . FAMILY HISTORY: Negative. PHYSICAL EXAMINATION: GENERAL: The patient is awake, alert. VITAL SIGNS: Temperature of 98.4, pulse 63 per minute, blood pressure 113/54. SHEENT: Unremarkable. NECK: There is no JVD. EXTREMITIES: No pedal edema. LUNGS: Equal bilaterally. No added sounds. CARDIOVASCULAR: S1, S2 is regular, no murmurs. ABDOMEN: Soft. There is no organomegaly. NEUROLOGIC: Nonfocal. MUSCULOSKELETAL: The left knee currently has a dressing in place. ASSESSMENT AND PLAN: * Diabetes mellitus for which the patient is placed on sliding scale insulin and hemoglobin A1c will be checked. * Hypertension. Blood pressure will be monitored. * Hyperlipidemia. * Status post left knee surgery for DJD of the knee. The patient will be placed on pain medications and receive physical therapy. * Advance care planning: The patient is a full code Time spent was 18 minutes. MD SKYLER Leyva/KEMI/MODESTO TID: [id number] RECEIPT: [id number]
[2024-09-04] MEDS: ceFAZolin 1GM/50ML 50 ML IV SCH (23:35)
[2024-09-05] VITALS (8 sets, daily range): BP systolic 108–125; BP diastolic 60–70; PULSE 60–80; RESP 16–18; TEMP 97.4–98.6; O2SAT 92–98
[2024-09-05 07:35] LABS: Basophils # (auto) 0 10 ^3/uL (0-0.2); Basophils % (auto) 0.3 % (0.0-2.0); Eosinophils # (auto) 0 10 ^3/uL (0-0.8); Eosinophils % (auto) 0.1 % (0.0-7.0); Hematocrit 29.5 % (36.0-46.0); Hemoglobin 10.1 g/dL (12.2-16.2); Lymphocytes % (auto) 29.6 % (10.0-50.0); Mean Corpuscular Hemoglobin 32.8 pg (28.0-32.0); Mean Corpuscular Hgb Conc. 34.3 g/dL (32.0-36.0); Mean Corpuscular Volume 95.5 fL (80.0-100.0); Monocytes # (auto) 0.6 10 ^3/uL (0-1.3); Monocytes % (auto) 9.7 % (0.0-12.0); Neutrophils % (auto) 60.3 % (37.0-80.0); Nucleated Red Blood Cells % 0.3 %; Platelet Count (auto) 165 10^3/uL (140-450); Red Blood Cells 3.09 10^6/uL (4.0-5.20); Red Cell Distribution Width 12.6 % (11.8-14.3); White Blood Cell 6.6 10^3/uL (4.4-10.8)
[2024-09-05 07:56] LABS: Alanine Aminotransferase 9 U/L (7-40); Albumin 4.3 g/dL (3.2-4.8); Alkaline Phosphatase 56 U/L (46-116); Anion Gap 9 (5-15); BUN/Creatinine Ratio 23.6 (10.0-20.0); Blood Urea Nitrogen 13 mg/dL (9-23); Calcium 9.2 mg/dL (8.7-10.4); Carbon Dioxide 30 mmol/L (20-31); Chloride 101 mmol/L (98-107); Glucose 140 mg/dL (74-106); Potassium 3.4 mmol/L (3.5-5.1); Sodium 140 mmol/L (136-145)
[2024-09-05 07:57] LABS: Aspartate Aminotransferase 11 U/L (13-40); Bilirubin, Total 0.8 mg/dL (0.2-1.0); Total Protein 6.6 g/dL (5.7-8.2)
--- NOTE | 2024-09-05 11:37 | DVHPN2 ---
Subjective Patient continues to report having left knee pain Reviewed: Care Plan, H&P, Labs, Medications Changes from previous H/P or p: No Changes General: Per HPI Objective Vitals Vital Signs Date Time Temp Pulse Resp B/P (MAP) Pulse Ox O2 Delivery O2 Flow Rate FiO2 09/05/24 08:25 98.3 60 17 113/60 (77) 93 98.3 09/05/24 08:00 Nasal Cannula* 2 28 Intake/Output Intake and Output 09/05/24 07:00 Intake Total 1900 ml Output Total 3250 ml Balance -1350 ml Intake Oral 1900 ml Output Urine Total 3250 ml General Appearance: Alert, Oriented X3, Cooperative HEENT: Atraumatic, PERRLA Lungs: Clear to auscultation, Normal air movement Cardiovascular: Normal S1, Normal S2 Abdomen: Normal bowel sounds Genitourinary: No Apparent Abnormalities Musculoskeletal: Normal sensory function, Normal motor function Extremities: Other (Left knee brace) Neuro: Normal gait, Normal speech Skin: Dry, Intact Psych/Mental Status: Mental status NL Medications Current Medications Medications Dose Ordered Sig/Aba Route Start Time Stop Time Status Last Admin Dose Admin Diphenhydramine HCl 25 mg Q4HP PRN IV 09/03/24 09:30 Lactated Ringer's 1,000 ml @ 100 mls/hr Q10H IV 09/03/24 10:00 09/05/24 04:19 100 MLS/HR Ondansetron HCl 4 mg Q6HP PRN IV 09/03/24 10:00 Docusate Sodium 100 mg Q12HR PO 09/03/24 10:00 09/05/24 08:59 100 MG Bisacodyl 5 mg Q12HP PRN PO 09/03/24 10:00 Enoxaparin Sodium 30 mg Q12HR SC 09/03/24 10:00 09/05/24 08:59 30 MG Nitroglycerin 0.4 mg Q5MINP PRN SL 09/03/24 10:00 Diagnostic Test (Pha) 1 strip ACHS 09/04/24 17:00 09/05/24 06:10 1 STRIP Insulin Human Regular ACHS SC 09/04/24 17:00 09/05/24 06:17 2 UNITS Dextrose 50 ml UD PRN IV 09/04/24 11:45 Morphine Sulfate 2 mg Q4HPRN PRN IV 09/04/24 11:45 09/04/24 12:20 2 MG Acetaminophen/ Hydrocodone Bitart 1 tab Q6HPRN PRN PO 09/04/24 11:45 Acetaminophen 650 mg Q6HP PRN PO 09/04/24 11:45 Laboratory Results Laboratory Tests 09/05/24 06:44 Chemistry Test 09/05/24 06:44 Albumin 4.3 g/dL (3.2-4.8) Calcium Level 9.2 mg/dL (8.7-10.4) Total Protein 6.6 g/dL (5.7-8.2) LFT Test 09/05/24 06:44 Alanine Aminotransferase (ALT) 9 U/L (7-40) Alkaline Phosphatase 56 U/L (46-116) Aspartate Amino Transferase (AST) 11 U/L (13-40) L Total Bilirubin 0.8 mg/dL (0.2-1.0) Urinalysis Test 09/01/24 12:00 Urine Color Light-yellow (Yellow) Urine Clarity Clear (Clear) Urine pH 7.0 (5.0-9.0) Urine Specific [place] 1.017 (1.001-1.035) Urine Protein Negative (Negative) Urine Ketones Negative (Negative) Urine Blood Negative /uL (Negative) Urine Nitrite Negative (Negative) Urine Bilirubin Negative (Negative) Urine Urobilinogen Normal mg/dL (Negative) Urine Leukocyte Esterase 1+ /uL (Negative) Urine RBC 1 /hpf (0 - 4) Urine Microscopic WBC 3 /HPF (0-5) Urine Squamous Epithelial Cells Few /hpf (<5) Urine Bacteria None seen /hpf (None Seen) Urine Mucus Few (None Seen) Urine Glucose Normal mg/dL (Normal) Labs and/or images reviewed: Labs reviewed by me, Image(s) reviewed by me Assessment/Plan Assessment/Plan Impression: -status post total left knee surgery -osteoarthritis -primary hypertension -dyslipidemia -diabetes mellitus Plan: -patient postop day 2. Minimal ambulation at this time, stated 5 ft. -continue regular insulin sliding scale -pain management -antihypertensives -PUD, DVT prophylaxis -discharge planning once ambulation has improved. Home PT has already been established. Surgical clearance also pending Total time spent with patient discussing and formulating plan of care: 35 minutes. This medical document was created using an electronic medical record system with Dragon computerized dictation system. Although this document has been carefully reviewed, there may still be some phonetic and typographical errors. These areas are purely typographical due to imperfections of the software programs, and do not reflect any compromise in the patient's medical care. Plan discussed with: Patient, Other (RN) Date of Service: Sep 05, 2024 Billing Provider: ROSALIE MARTEL NP Common Visit Codes: [id number] INP/OBS CARE(HIGH) ROSALIE MARTEL NP Sep 05, 2024 11:37
[2024-09-05] MEDS: HYDROcodone-ACET 5/325MG TAB PO PRN (18:13)
[2024-09-06] VITALS (8 sets, daily range): BP systolic 91–123; BP diastolic 58–66; PULSE 59–73; RESP 17–18; TEMP 97.5–98.9; O2SAT 93–100
--- NOTE | 2024-09-06 13:57 | DVHPN2 ---
Subjective The patient is seen and examined at bedside. Still complain a lot of knee pain. The patient stated that she able to take about 10 steps today. The patient hesitant to get pain medication because she was afraid to get addicted Reviewed: Care Plan, H&P, Labs, Medications Changes from previous H/P or p: No Changes General: Per HPI Objective Vitals Vital Signs Date Time Temp Pulse Resp B/P (MAP) Pulse Ox O2 Delivery O2 Flow Rate FiO2 09/06/24 09:10 98.9 64 18 115/58 (77) 93 98.9 09/06/24 08:00 Nasal Cannula* 2 28 Intake/Output Intake and Output 09/06/24 07:00 Intake Total 1420 ml Output Total 2800 ml Balance -1380 ml Intake Oral 1420 ml Output Urine Total 2800 ml General Appearance: Alert, Oriented X3, Cooperative HEENT: Atraumatic, PERRLA Lungs: Clear to auscultation, Normal air movement Cardiovascular: Normal S1, Normal S2 Abdomen: Normal bowel sounds Genitourinary: No Apparent Abnormalities Musculoskeletal: Normal sensory function, Normal motor function Extremities: Other (Left knee brace) Neuro: Normal gait, Normal speech Skin: Dry, Intact Psych/Mental Status: Mental status NL Medications Current Medications Medications Dose Ordered Sig/Aba Route Start Time Stop Time Status Last Admin Dose Admin Diphenhydramine HCl 25 mg Q4HP PRN IV 09/03/24 09:30 Lactated Ringer's 1,000 ml @ 100 mls/hr Q10H IV 09/03/24 10:00 09/05/24 04:19 100 MLS/HR Ondansetron HCl 4 mg Q6HP PRN IV 09/03/24 10:00 Docusate Sodium 100 mg Q12HR PO 09/03/24 10:00 09/06/24 09:58 100 MG Bisacodyl 5 mg Q12HP PRN PO 09/03/24 10:00 Enoxaparin Sodium 30 mg Q12HR SC 09/03/24 10:00 09/06/24 09:58 30 MG Nitroglycerin 0.4 mg Q5MINP PRN SL 09/03/24 10:00 Diagnostic Test (Pha) 1 strip ACHS 09/04/24 17:00 09/06/24 11:22 1 STRIP Insulin Human Regular ACHS SC 09/04/24 17:00 09/06/24 11:22 2 UNITS Dextrose 50 ml UD PRN IV 09/04/24 11:45 Morphine Sulfate 2 mg Q4HPRN PRN IV 09/04/24 11:45 09/04/24 12:20 2 MG Acetaminophen/ Hydrocodone Bitart 1 tab Q6HPRN PRN PO 09/04/24 11:45 09/05/24 18:13 1 TAB Acetaminophen 650 mg Q6HP PRN PO 09/04/24 11:45 Laboratory Results Laboratory Tests 09/05/24 06:44 Urinalysis Test 09/01/24 12:00 Urine Color Light-yellow (Yellow) Urine Clarity Clear (Clear) Urine pH 7.0 (5.0-9.0) Urine Specific [place] 1.017 (1.001-1.035) Urine Protein Negative (Negative) Urine Ketones Negative (Negative) Urine Blood Negative /uL (Negative) Urine Nitrite Negative (Negative) Urine Bilirubin Negative (Negative) Urine Urobilinogen Normal mg/dL (Negative) Urine Leukocyte Esterase 1+ /uL (Negative) Urine RBC 1 /hpf (0 - 4) Urine Microscopic WBC 3 /HPF (0-5) Urine Squamous Epithelial Cells Few /hpf (<5) Urine Bacteria None seen /hpf (None Seen) Urine Mucus Few (None Seen) Urine Glucose Normal mg/dL (Normal) Labs and/or images reviewed: Labs reviewed by me Assessment/Plan Assessment/Plan -status post total left knee surgery -osteoarthritis -primary hypertension -dyslipidemia -diabetes mellitus Plan: -patient postop day 3. Minimal ambulation at this time, took about 10 steps today. -continue regular insulin sliding scale -pain management -antihypertensives -PUD, DVT prophylaxis -discharge planning once ambulation has improved. Home PT has already been established. Surgical clearance also pending Discussed with patient in length regarding to the need of pain medication prior to working with PT to prevent severe pain and to be able to move around. This medical document was created using an electronic medical record system with [employer] direct computerized dictation system. Although this document has been carefully reviewed, there may still be some phonetic and typographical errors. These areas are purely typographical due to imperfections of the software programs, and do not reflect any compromise in the patient's medical care. Plan discussed with: Patient, Spouse, Daughter Date of Service: Sep 06, 2024 Billing Provider: TASNEEM SHEPPARD MD Common Visit Codes: [id number] INP/OBS CARE(HIGH) TASNEEM SHEPPARD MD Sep 06, 2024 13:57
[2024-09-06] MEDS: ACETAMINOPHEN 325 MG TAB PO PRN (15:50)
[2024-09-07] VITALS (7 sets, daily range): BP systolic 103–130; BP diastolic 59–64; PULSE 54–71; RESP 14–18; TEMP 97.9–98.4; O2SAT 95–100
[2024-09-07] MEDS: FLEET ENEMA(ADULT) 135 ML PR ONE (09:15)
[2024-09-07] MEDS: BISACODYL 10 MG RECT SUPP PR ONE (09:15)
--- NOTE | 2024-09-07 21:54 | DVHPN2 ---
Subjective The patient is seen and examined at bedside. Still complain a lot of knee pain. The patient had tried to walk a little bit more today however remain in pain. Reviewed: Care Plan, H&P, Labs, Medications Changes from previous H/P or p: No Changes General: Per HPI Objective Vitals Vital Signs Date Time Temp Pulse Resp B/P (MAP) Pulse Ox O2 Delivery O2 Flow Rate FiO2 09/07/24 20:00 68 09/07/24 20:00 17 99 Nasal Cannula* 2 28 09/07/24 17:00 97.9 120/62 (81) 97.9 Intake/Output Intake and Output 09/07/24 07:00 Intake Total 1525 ml Output Total 2300 ml Balance -775 ml Intake Oral 1525 ml Output Urine Total 2300 ml General Appearance: Alert, Oriented X3, Cooperative HEENT: Atraumatic, PERRLA Lungs: Clear to auscultation, Normal air movement Cardiovascular: Normal S1, Normal S2 Abdomen: Normal bowel sounds Genitourinary: No Apparent Abnormalities Musculoskeletal: Normal sensory function, Normal motor function Extremities: Other (Left knee brace) Neuro: Normal gait, Normal speech Skin: Dry, Intact Psych/Mental Status: Mental status NL Medications Current Medications Medications Dose Ordered Sig/Aba Route Start Time Stop Time Status Last Admin Dose Admin Diphenhydramine HCl 25 mg Q4HP PRN IV 09/03/24 09:30 Lactated Ringer's 1,000 ml @ 100 mls/hr Q10H IV 09/03/24 10:00 09/05/24 04:19 100 MLS/HR Ondansetron HCl 4 mg Q6HP PRN IV 09/03/24 10:00 Docusate Sodium 100 mg Q12HR PO 09/03/24 10:00 09/07/24 10:45 100 MG Bisacodyl 5 mg Q12HP PRN PO 09/03/24 10:00 Enoxaparin Sodium 30 mg Q12HR SC 09/03/24 10:00 09/07/24 10:46 30 MG Nitroglycerin 0.4 mg Q5MINP PRN SL 09/03/24 10:00 Diagnostic Test (Pha) 1 strip ACHS 09/04/24 17:00 09/07/24 16:35 1 STRIP Insulin Human Regular ACHS SC 09/04/24 17:00 09/07/24 16:41 2 UNITS Dextrose 50 ml UD PRN IV 09/04/24 11:45 Morphine Sulfate 2 mg Q4HPRN PRN IV 09/04/24 11:45 09/04/24 12:20 2 MG Acetaminophen/ Hydrocodone Bitart 1 tab Q6HPRN PRN PO 09/04/24 11:45 09/07/24 03:24 1 TAB Acetaminophen 650 mg Q6HP PRN PO 09/04/24 11:45 09/06/24 15:50 650 MG Laboratory Results Laboratory Tests 09/05/24 06:44 Urinalysis Test 09/01/24 12:00 Urine Color Light-yellow (Yellow) Urine Clarity Clear (Clear) Urine pH 7.0 (5.0-9.0) Urine Specific [place] 1.017 (1.001-1.035) Urine Protein Negative (Negative) Urine Ketones Negative (Negative) Urine Blood Negative /uL (Negative) Urine Nitrite Negative (Negative) Urine Bilirubin Negative (Negative) Urine Urobilinogen Normal mg/dL (Negative) Urine Leukocyte Esterase 1+ /uL (Negative) Urine RBC 1 /hpf (0 - 4) Urine Microscopic WBC 3 /HPF (0-5) Urine Squamous Epithelial Cells Few /hpf (<5) Urine Bacteria None seen /hpf (None Seen) Urine Mucus Few (None Seen) Urine Glucose Normal mg/dL (Normal) Labs and/or images reviewed: Labs reviewed by me Assessment/Plan Assessment/Plan -status post total left knee surgery -osteoarthritis -primary hypertension -dyslipidemia -diabetes mellitus Plan: -patient postop day 4. Minimal ambulation at this time. -continue regular insulin sliding scale -pain management -antihypertensives -PUD, DVT prophylaxis -discharge planning once ambulation has improved. Home PT has already been established. Surgical clearance also pending Discussed with patient in length regarding to the need of pain medication prior to working with PT to prevent severe pain and to be able to move around. Discussed with who unable to take the patient home today, he was to go to [facility] and also had something to do down the hill. He will come back into tomorrow. Discharge planning in a.m. if cleared by orthopedic surgeon This medical document was created using an electronic medical record system with [employer] direct computerized dictation system. Although this document has been carefully reviewed, there may still be some phonetic and typographical errors. These areas are purely typographical due to imperfections of the software programs, and do not reflect any compromise in the patient's medical care. Plan discussed with: Patient Date of Service: Sep 07, 2024 Billing Provider: TASNEEM SHEPPARD MD Common Visit Codes: [id number] INP/OBS CARE(HIGH) TASNEEM SHEPPARD MD Sep 07, 2024 21:54
[2024-09-08 01:00] VITALS: BP 113/67; PULSE 68; RESP 19; TEMP 97.9; O2SAT 99
[2024-09-08 05:00] VITALS: BP 118/72; PULSE 65; RESP 18; TEMP 97.8; O2SAT 98
[2024-09-08 06:03] LABS: Basophils # (auto) 0 10 ^3/uL (0-0.2); Basophils % (auto) 0.6 % (0.0-2.0); Eosinophils # (auto) 0 10 ^3/uL (0-0.8); Eosinophils % (auto) 0.9 % (0.0-7.0); Hematocrit 24.7 % (36.0-46.0); Hemoglobin 8.6 g/dL (12.2-16.2); Lymphocytes # (auto) 1.5 10 ^3/uL (0.4-5.4); Lymphocytes % (auto) 36.2 % (10.0-50.0); Mean Corpuscular Hemoglobin 33.2 pg (28.0-32.0); Mean Corpuscular Hgb Conc. 34.9 g/dL (32.0-36.0); Monocytes # (auto) 0.4 10 ^3/uL (0-1.3); Monocytes % (auto) 8.7 % (0.0-12.0); Neutrophils # (auto) 2.3 10 ^3/uL (1.6-8.6); Neutrophils % (auto) 53.6 % (37.0-80.0); Platelet Count (auto) 196 10^3/uL (140-450); Red Cell Distribution Width 12.4 % (11.8-14.3); White Blood Cell 4.2 10^3/uL (4.4-10.8)
[2024-09-08 06:08] LABS: Anion Gap 9 (5-15); Carbon Dioxide 29 mmol/L (20-31); Chloride 100 mmol/L (98-107); Potassium 3.7 mmol/L (3.5-5.1); Sodium 138 mmol/L (136-145)
[2024-09-08 06:09] LABS: Calcium 9.5 mg/dL (8.7-10.4)
[2024-09-08 06:14] LABS: Blood Urea Nitrogen 13 mg/dL (9-23)
[2024-09-08 06:24] LABS: Glucose 145 mg/dL (74-106)
[2024-09-08 08:00] VITALS: PULSE 62; PULSE 64; RESP 18; O2SAT 98
[2024-09-08 09:00] VITALS: BP 119/47; PULSE 57; RESP 16; TEMP 97.5; O2SAT 99
--- NOTE | 2024-09-08 10:45 | DVHDS2 ---
Discharge Summary Date of Admission Sep 03, 2024 at 09:47 Date of Discharge: Sep 08, 2024 Labs/Diagnostic Data: Laboratory Results Test 09/08/24 05:55 09/08/24 05:25 09/05/24 06:44 09/01/24 12:00 POC Glucose 149 mg/dl (70-106) White Blood Count 4.2 10^3/uL (4.4-10.8) Red Blood Count 2.60 10^6/uL (4.0-5.20) Hemoglobin 8.6 g/dL (12.2-16.2) Hematocrit 24.7 % (36.0-46.0) Mean Corpuscular Volume 95.0 fL (80.0-100.0) Mean Corpuscular Hemoglobin 33.2 pg (28.0-32.0) Mean Corpuscular Hemoglobin Concent 34.9 g/dL (32.0-36.0) Red Cell Distribution Width 12.4 % (11.8-14.3) Platelet Count 196 10^3/uL (140-450) Mean Platelet Volume 7.6 fL (6.9-10.8) Neutrophils (%) (Auto) 53.6 % (37.0-80.0) Lymphocytes (%) (Auto) 36.2 % (10.0-50.0) Monocytes (%) (Auto) 8.7 % (0.0-12.0) Eosinophils (%) (Auto) 0.9 % (0.0-7.0) Basophils (%) (Auto) 0.6 % (0.0-2.0) Neutrophils # (Auto) 2.3 10 ^3/uL (1.6-8.6) Lymphocytes # (Auto) 1.5 10 ^3/uL (0.4-5.4) Monocytes # (Auto) 0.4 10 ^3/uL (0-1.3) Eosinophils # (Auto) 0 10 ^3/uL (0-0.8) Basophils # (Auto) 0 10 ^3/uL (0-0.2) Nucleated Red Blood Cells 0.0 % Sodium Level 138 mmol/L (136-145) Potassium Level 3.7 mmol/L (3.5-5.1) Chloride Level 100 mmol/L (98-107) Carbon Dioxide Level 29 mmol/L (20-31) Anion Gap 9 (5-15) Blood Urea Nitrogen 13 mg/dL (9-23) Creatinine 0.50 mg/dL (0.550-1.02) Glomerular Filtration Rate Calc 100 mL/min (>90) BUN/Creatinine Ratio 26.0 (10.0-20.0) Serum Glucose 145 mg/dL (74-106) Calcium Level 9.5 mg/dL (8.7-10.4) Total Bilirubin 0.8 mg/dL (0.2-1.0) Aspartate Amino Transferase (AST) 11 U/L (13-40) Alanine Aminotransferase (ALT) 9 U/L (7-40) Alkaline Phosphatase 56 U/L (46-116) Total Protein 6.6 g/dL (5.7-8.2) Albumin 4.3 g/dL (3.2-4.8) Urine Color Light-yellow (Yellow) Urine Clarity Clear (Clear) Urine pH 7.0 (5.0-9.0) Urine Specific [place] 1.017 (1.001-1.035) Urine Protein Negative (Negative) Urine Ketones Negative (Negative) Urine Blood Negative /uL (Negative) Urine Nitrite Negative (Negative) Urine Bilirubin Negative (Negative) Urine Urobilinogen Normal mg/dL (Negative) Urine Leukocyte Esterase 1+ /uL (Negative) Urine RBC 1 /hpf (0 - 4) Urine Microscopic WBC 3 /HPF (0-5) Urine Squamous Epithelial Cells Few /hpf (<5) Urine Bacteria None seen /hpf (None Seen) Urine Mucus Few (None Seen) Urine Glucose Normal mg/dL (Normal) Test 09/01/24 10:50 Prothrombin Time 10.8 sec (9.3-11.8) Prothrombin Time INR 1.02 (0.9-1.15) Activated Partial Thromboplast Time 27.3 SEC (24.5-34.5) Other Laboratory Tests 09/08/24 05:25 Brief Hx & Hospital Course: see dictated note Condition at Discharge: Fair Final Diagnosis/Problems List left knee surgery Discharge Disposition: Home with Health Services Discharge Instruct/Medications Diet: Consistent carbohydrate Activity: No Restrictions, As Tolerated Follow Up/Referral: fu with dr Hahn Medications: resume home meds script to pharmacy Discharge Statement: "Patient was advised to return to the ER or call 911 if any headaches, dizziness, shortness of breath, chest pain, abdominal pain, bleeding, fevers, or worsening of medical condition. Patient was counseled about treatment plan, medications, possible side effects, patientverbalized understanding. All questions were answered to the best of my ability. This discharge took greater then 30 minutes in planning, reviewing documentation, counseling the patient, and discussing with other team members." ASSESSMENT ASSESSMENT Assessment left knee surgery Date of Service: Sep 08, 2024 Billing Provider: ROBEL AKINS MD Common Visit Codes: [id number] DISCH DAY >30min ROBEL AKINS MD Sep 08, 2024 10:45
[2024-09-08] MEDS ORDERED: ENO40SY SUBCUT (10:47)
[2024-09-08] MEDS ORDERED: HYDR1TAB97 PO (10:47)
[2024-09-08] MEDS ORDERED: DOCU-94 PO (10:47)
[2024-09-08] MEDS ORDERED: FER325T PO (10:50)
--- NOTE | 2024-09-08 10:55 | DVHDS ---
DATE OF DISCHARGE: 09/08/2024 The patient is a 74-year-old lady who was admitted after she underwent surgery on the left knee for DJD of the knee. She has history of diabetes, hypertension, hyperlipidemia. HOSPITAL COURSE: The patient did well postoperatively. Her hemoglobin at time of discharge was 8.6. The patient has now been ambulating with physical therapy. She will be discharged home to resume her home medications as well as to be on [place] p.r.n. for pain, Colace p.r.n. for constipation, Lovenox 40 mg subcu daily, iron sulfate 325 mg daily. She will follow up with Dr. Arriola in the next one week. FINAL DIAGNOSES: * Left knee surgery status post degenerative joint disease of the knee. * Diabetes mellitus. * Anemia. * Hypertension. * Hyperlipidemia. Time spent in discharge planning and review of plan with the patient and provider contracting consultant was 39 minutes. MD SKYLER Leyva/MARIBELL TID: [id number] RECEIPT: [id number]
[2024-09-08 13:00] VITALS: BP 110/64; PULSE 70; RESP 16; TEMP 98.2; O2SAT 98
== END 2024-09-08 13:30 | disposition home health service (06) | DRG 470 ==
LOC: SUR 06:11 → OVERFLOW 09:47 → TELE-CENTR 14:17 → CENTRAL 09-04 23:19
PROVIDERS: ADMIT Internal Medicine; ATTEND Internal Medicine
PROC: 0SRD069 Replacement of Left Knee Joint with Oxidized Zirconium on Polyethylene Synthetic Substitute, Cemented, Open Approach (ICD-10-PCS; principal; 2024-09-03 07:34)
DX: M17.12 Unilateral primary osteoarthritis, left knee (principal); R71.0 Precipitous drop in hematocrit; E78.5 Hyperlipidemia, unspecified; E11.9 Type 2 diabetes mellitus without complications; I10 Essential (primary) hypertension; K59.00 Constipation, unspecified; Z79.4 Long term (current) use of insulin; Z79.899 Other long term (current) drug therapy
CPT/HCPCS: 36415; 73562; 80048; 80053; 81001; 82962; 85025; 85610; 85730; 86850; 86900; 86901; 97110; 97116; 97163; 97530; G0378; J0171; J1100; J1815; J2250; J2405; J2704; J3490

== ENCOUNTER 2024-12-16 09:18 | Outpatient (CLI) | payer OTHER ==
[~2024-12-16 09:18] MED LIST changes: +DOCU-94 PO; +ENO40SY SUBCUT; +FER325T PO; +HYDR1TAB97 PO
== END 2024-12-16 17:00 | disposition home or self-care (01) ==
LOC: LAB 09:18
PROVIDERS: ATTEND Internal Medicine
DX: E11.9 Type 2 diabetes mellitus without complications (principal)
CPT/HCPCS: 36415; 83036

== ENCOUNTER → 2025-02-04 | Outpatient (CLI) | payer OTHER ==
[2025-02-04 10:05] LABS: Hematocrit 37.4 % (36.0-46.0); Hemoglobin 13.0 g/dL (12.2-16.2); Mean Corpuscular Hemoglobin 32.0 pg (28.0-32.0); Mean Corpuscular Volume 92.0 fL (80.0-100.0); Nucleated Red Blood Cells % 0.0 %
[2025-02-04 10:07] LABS: Chloride 103 mmol/L (98-107); Potassium 3.9 mmol/L (3.5-5.1); Sodium 142 mmol/L (136-145)
[2025-02-04 10:08] LABS: Calcium 10.1 mg/dL (8.7-10.4)
[2025-02-04 10:13] LABS: BUN/Creatinine Ratio 22.0 (10.0-20.0); Blood Urea Nitrogen 13 mg/dL (9-23)
[2025-02-04 10:16] LABS: Anion Gap 8 (5-15); Carbon Dioxide 31 mmol/L (20-31); Glucose 133 mg/dL (74-106)
[2025-02-04 11:45] LABS: INR 1.03 (0.9-1.15); Partial Thromboplastin Time 29.3 SEC (24.5-34.5); Prothrombin Time 10.9 sec (9.3-11.8)
== END | disposition home or self-care (01) ==
LOC: LAB 09:24
PROVIDERS: ATTEND Nurse Practitioner Family
DX: Z01.812 Encounter for preprocedural laboratory examination (principal); D72.819 Decreased white blood cell count, unspecified; Z51.81 Encounter for therapeutic drug level monitoring
CPT/HCPCS: 36415; 80048; 85025; 85610; 85730

== ENCOUNTER → 2025-04-15 | Outpatient (CLI) | payer OTHER ==
[2025-04-15 10:16] LABS: Hematocrit 38.8 % (36.0-46.0); Hemoglobin 13.2 g/dL (12.2-16.2); Mean Corpuscular Hemoglobin 32.0 pg (28.0-32.0); Mean Corpuscular Volume 94.1 fL (80.0-100.0); Nucleated Red Blood Cells % 0.1 %
[2025-04-15 10:53] LABS: Alanine Aminotransferase 16 U/L (7-40); Albumin 4.4 g/dL (3.2-4.8); Alkaline Phosphatase 72 U/L (46-116); Anion Gap 9 (5-15); BUN/Creatinine Ratio 14.7 (10.0-20.0); Blood Urea Nitrogen 10 mg/dL (9-23); Calcium 8.9 mg/dL (8.7-10.4); Carbon Dioxide 31 mmol/L (20-31); Chloride 106 mmol/L (98-107); Cholesterol 123 mg/dL (< 200); Potassium 4.0 mmol/L (3.5-5.1); Total Protein 7.6 g/dL (5.7-8.2); Triglycerides 138 mg/dL (< 150)
[2025-04-15 10:54] LABS: Bilirubin, Total 0.7 mg/dL (0.2-1.0); Glucose 138 mg/dL (74-106); HDL Cholesterol 34 mg/dL (40-59); Sodium 146 mmol/L (136-145)
[2025-04-15 11:06] LABS: Microalb/Creat Ratio, Urine 51.0
== END | disposition home or self-care (01) ==
LOC: LAB 09:56
PROVIDERS: ATTEND Internal Medicine
DX: E11.9 Type 2 diabetes mellitus without complications (principal); D64.9 Anemia, unspecified; Z12.11 Encounter for screening for malignant neoplasm of colon
CPT/HCPCS: 36415; 80053; 80061; 82043; 82570; 83036; 84443; 85025